=== PATIENT | female | born 1975 | race Caucasian/White ===

== ENCOUNTER 2018-07-09 08:16 | Day surgery (SDC) | payer OTHER ==
[2018-07-09] MEDS ORDERED: LR 1,000 ML IV ONE (08:29)
[2018-07-09] MEDS ORDERED: BUPIVACAINE 0.25% 30 ML SDV ONE (09:00)
[2018-07-09] MEDS ORDERED: EPINEPHrine 1 MG/ML INJ ONE (09:01)
[2018-07-09] MEDS ORDERED: MIDAZOLAM 2 MG/2 ML VIAL ONE (10:18)
--- NOTE | 2018-07-09 10:18 | PDGENHP ---
History & Physical Chief Complaint: AUB History of Present Illness: 43 yo who saw me in the office re AUB. Normal US and EBX also came back benign/unremarkable. Discussed options for tx ranging from observation to hormones to IUD to ablation and she'd like ablation. Pertinent Past, Social, Family History: Non-contributory Relevant Physical Exam: NAD, pleasant. Belly soft, NT/ND. Assessment & Plan Assessment: Preop: DxHSC, Ablation - Routine preop orders, no abx needed. - No labs needed. - Home from PACU. STEPHANIE
[2018-07-09] MEDS ORDERED: MIDAZOLAM 2 MG/2 ML VIAL IVP ONE (10:21)
[2018-07-09] MEDS ORDERED: PROPOFOL/EMULSION 500 MG/50 ML BOTTLE IV ONE (10:25)
[2018-07-09] MEDS ORDERED: fentaNYL 100 MCG/2 ML INJ ONE (10:25)
--- NOTE | 2018-07-09 10:26 | PDANEPAE ---
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 PERIOD) - Endocrine History Hx Diabetes: No - Renal History Hx Renal Disorders: No - Liver History Hx Hepatic Disorders: No - Neurological & Psychiatric Hx Hx Neurological and Psychiatric Disorders: Yes Neurological / Psychiatric History Comment: ANXIETY WITH NEEDLES - Cancer History Hx Cancer: Yes Cancer History Comment: BREAST CA- CHEMO, SURGERY - Congenital Disorder History Hx Congenital Disorders: No - GI History GERD: no Hx Gastrointestinal Disorders: No - Other Health History Other Health History: NONE - Chronic Pain History Chronic Pain: No - Surgical History Prior Surgeries: LEFT KNEE SURGERY- TORN MENISCUS 25 YRS AGO. BILATERAL MASTECTOMY WITH RECONSTRUCTION 2006. PORT PLACEMENT 2006. ANOTHER BREAST SURGERY. REMOVED PORT WITH LOCAL ANE Review of Systems Review of Systems: - Exercise capacity Exercise capacity: >=4 METS METS (RN): 4 METS ANE Patient History - Allergies Allergies/Adverse Reactions: No Known Allergies Allergy (Verified 06/30/18 10:26) - Home Medications Home Medications: Keppra HS 10/28/15 [Last Taken 07/09/18] Tegretol HS 10/28/15 [Last Taken 07/09/18] Claritin 06/30/18 [Last Taken 07/08/18] Herbals/Supplements -Info Only 06/30/18 [Last Taken 07/04/18] - NPO status NPO Since - Liquids (Date): 07/08/18 NPO Since - Liquids (Time): 22:00 NPO Since - Solids (Date): 07/08/18 NPO Since - Solids (Time): 22:00 - Smoking Hx Smoking Status: Never smoked - Family Anes Hx Family Hx Anesthesia Complications: ADOPTED ANE Labs/Vital Signs - Vital Signs Blood Pressure: 123/75 Heart Rate: 79 Respiratory Rate: 16 O2 Sat (%): 94 Height: 170.18 cm Weight: 88.451 kg ANE Physical Exam - Airway Neck exam: FROM Mallampati Score: Class 2 Mouth exam: normal dental/mouth exam - Pulmonary Pulmonary: no respiratory distress - Cardiovascular Cardiovascular: regular rate and rhythym - ASA Status ASA Status: II ANE Anesthesia Plan Anesthesia Plan: GA with mask
[2018-07-09] MEDS ORDERED: ONDANSETRON 4 MG/2 ML VIAL ONE (11:11)
[2018-07-09] MEDS ORDERED: DEXAMETHASONE 4 MG/ML VIAL ONE ×2 (11:11)
[2018-07-09] MEDS ORDERED: PROPOFOL 200 MG/20 ML VIAL ONE ×2 (11:17→11:36)
[2018-07-09] MEDS ORDERED: HYDROmorphONE/DILAUDID 2 MG/ML INJ IVP PRN (11:33)
[2018-07-09] MEDS ORDERED: LR 500 ML IV PRN (11:33)
[2018-07-09] MEDS ORDERED: ALBUTEROL 3 ML DEYVIAL IH PRN (11:33)
[2018-07-09] MEDS ORDERED: fentaNYL 100 MCG/2 ML INJ IVP PRN (11:33)
[2018-07-09] MEDS ORDERED: DIAZEPAM 5 MG/ML 1 ML SYR IVP PRN (11:33)
[2018-07-09] MEDS ORDERED: LABETALOL HCL 5 MG/ML 20 ML MDV IVP PRN (11:33)
[2018-07-09] MEDS ORDERED: PROMETHAZINE HCL 25 MG/ML INJ IVP PRN (11:33)
[2018-07-09] MEDS ORDERED: METOCLOPRAMIDE 10 MG/2 ML VIAL IVP PRN (11:33)
[2018-07-09] MEDS ORDERED: oxyCODONE IR 5 MG TAB PO PRN (11:33)
[2018-07-09] MEDS ORDERED: ACETAMINOPHEN 500 MG TAB PO PRN (11:33)
[2018-07-09] MEDS ORDERED: NALOXONE HCL 0.4 MG/ML INJ IVP PRN (11:33)
[2018-07-09] MEDS ORDERED: SILVER NITRATE APPLICATOR 1 APPL TP ONE (11:38)
--- NOTE | 2018-07-09 11:54 | SUROPNOTE ---
[facility] Operative Report - Surgery Date of Operation: 07/09/18 Surgeon: Andrey Dior Counter Installer: None Anesthesiologist: Christin Anesthesia: IV Sedation Pre-op Diagnosis: AUB Post-op Diagnosis: Same Procedure: DxHSC, endometrial sampling, Karlene endometrial ablation Findings: Normal appearance of uterine cavity, small polypoid/irregular tissue Inf/Abcess present in the surg proc area at time of surgery?: No EBL: Minimal Complications: None Specimen(s): Endometrial sampling Technique:
--- NOTE | 2018-07-09 12:01 | POSTANESTH ---
Post Anesthetic Evaluation Cardiovascular Status: Normal, Stable Respiratory Status: Normal, Stable Level of Consciousness/Mental Status: Can Participate in Eval Pain Control: Adequate, Prn Tx Ordered Nausea/Vomiting Control: Adequate, Prn Tx Ordered Complications Possibly Related to Anesthesia: None Noted
[2018-07-09] MEDS ORDERED: ACETAMINOPHEN 500 MG TAB ONE (12:21)
[2018-07-09 14:24] VITALS: BP 105/72
== END 2018-07-09 14:15 | disposition home or self-care (01) ==
LOC: FSGY 08:16
PROVIDERS: ATTEND Obstetrics & Gynecology
PROC: 0UDB8ZZ Extraction of Endometrium, Via Natural or Artificial Opening Endoscopic (ICD-10-PCS; principal; 2018-07-09 09:30)
DX: N93.8 Other specified abnormal uterine and vaginal bleeding (principal); G40.909 Epilepsy, unspecified, not intractable, without status epilepticus
CPT/HCPCS: 58563; C1782; J0171; J1100; J2250; J2405; J2704; J3010